=== PATIENT | female | born 1975 | race Caucasian/White ===

== ENCOUNTER 2016-07-28 10:39 | Observation (INO) | payer BC ==
[~2016-07-28] VITALS: Ht 157.5 cm; Wt 66.2 kg
[2016-07-28 10:42] VITALS: Ht 157.5 cm; Wt 66.2 kg
[2016-07-28] MEDS ORDERED: SOD CHLORIDE 0.9% 1,000 ML IV STA (10:49)
[2016-07-28] MEDS ORDERED: ONDANSETRON 4 MG INJ IV STA (10:49)
[2016-07-28] MEDS ORDERED: MECLIZINE 12.5 MG TAB PO ONE (11:00)
[2016-07-28 11:53] LABS: INR 0.95; PROTIME 12.7 Sec (12.2-14.2)
[2016-07-28 11:54] LABS: PARTIAL THROMBOPLASTIN TIME 26.9 Sec (25.0-35.0)
[2016-07-28 11:56] LABS: ALBUMIN 4.2 g/dl (3.3-4.9); CHLORIDE 102 mmol/L (97-110); POTASSIUM 3.7 mmol/L (3.5-5.1); SODIUM 138 mmol/L (135-144)
[2016-07-28 11:58] LABS: ANION GAP 17 (8-16); CARBON DIOXIDE 23 mmol/L (21-31)
[2016-07-28 11:59] LABS: ALANINE AMINOTRANSFERASE 28 IU/L (13-69); ALBUMIN/GLOBULIN RATIO 1.23; ALKALINE PHOSPHATASE 60 IU/L (42-121); ASPARTATE AMINO TRANSFERASE 20 IU/L (15-46); BLOOD UREA NITROGEN 14 mg/dl (7-20); CALCIUM 8.7 mg/dl (8.4-10.2); GLUCOSE 117 mg/dl (70-220); TOTAL PROTEIN 7.6 g/dl (6.1-8.1)
[2016-07-28 12:02] LABS: BASOPHILS % 0.1 % (0.0-2.0); CONDITION 1; EOSINOPHILS % 0.1 % (0.0-7.0); HEMOGLOBIN 12.7 g/dl (12.0-16.0); LH ANALYZER COMMENTS 1; LYMPHOCYTES # 0.5 10^3/ul (0.8-2.9); LYMPHOCYTES % 5.5 % (15.0-51.0); MEAN CORPUSCULAR HEMOGLOBIN 25.5 pg (29.0-33.0); MEAN CORPUSCULAR HGB CONC 33.4 g/dl (32.0-37.0); MEAN CORPUSCULAR VOLUME 76.3 fl (82.0-101.0); MEAN PLATELET VOLUME 9.8 fl (7.4-10.4); MONOCYTE # 0.2 10^3/ul (0.3-0.9); NEUTROPHIL # 8.8 10^3/ul (1.6-7.5); NEUTROPHILS % 92.3 % (39.0-77.0); PLATELET COUNT 190 10^3/UL (140-440); RED BLOOD COUNT 4.98 10^6/ul (4.20-5.40); UNCORRECTED WBC 9.5 10^3/ul (4.8-10.8); WHITE BLOOD COUNT 9.5 10^3/ul (4.8-10.8)
[2016-07-28 12:12] LABS: TROPONIN-I < 0.012 ng/ml (0.00-0.12)
[2016-07-28 12:22] VITALS: TEMP 98
[2016-07-28] MEDS ORDERED: DIAZEPAM 5 MG/ML SYG IV ONE (12:30)
--- NOTE | 2016-07-28 12:49 | ERD ---
ER Documentation Chief Complaint Date/Time DATE: 07/28/16 TIME: 12:45 Chief Complaint nausea, vomitting, dizziness HPI This is a 41-year-old female with no past medical history that presents to the emergency department complaining of a sudden onset of dizziness that occurred at 4 AM 6 hours prior to arrival. The patient indicates she awoke to let her dog out which she does on a regular basis around 4 AM. She is laid back down and she immediately felt as though the room was spinning around her. She has felt very nauseous and did have an episode of nonbloody nonbilious emesis. She states that the spinning sensation has persisted for the past 6 hours. The vertigo is improved when she lies supine with her eyes closed and worsen when she sits up with her eyes open. She denies any tinnitus or ear pain. She denies any recent remote head trauma. She denies a headache or changes in vision. She has had no recent weight loss and has no neck pain. ROS All systems reviewed and are negative except as per history of present illness. Medications Home Meds Active Scripts Ondansetron (Ondansetron Odt) 4 Mg Tab.rapdis, 4 MG PO Q6H Y for NAUSEA AND/OR VOMITING, #20 TAB Prov:BERTO REESE 07/28/16 Meclizine Hcl* (Meclizine Hcl*) 25 Mg Tablet, 25 MG PO TID, #20 TAB Prov:HUGHBERTO 07/28/16 Allergies Allergies: Coded Allergies: No Known Allergy (Unverified , 07/28/16) PMhx/Soc Medical and Surgical Hx: pt denies Medical Hx, pt denies Surgical Hx History of Surgery: No Anesthesia Reaction: No Hx Neurological Disorder: No Hx Respiratory Disorders: No Hx Cardiac Disorders: No Hx Psychiatric Problems: No Hx Miscellaneous Medical Probl: No Hx Alcohol Use: No Hx Substance Use: No Hx Tobacco Use: No Smoking Status: Never smoker Physical Exam Vitals Vital Signs Date Time Temp Pulse Resp B/P Pulse Ox O2 Delivery O2 Flow Rate FiO2 07/28/16 13:40 76 107/66 07/28/16 12:22 98.0 74 18 112/74 100 07/28/16 10:42 98.0 79 18 126/85 100 Physical Exam Constitutional:Well-developed. Well-nourished. HEENT:Normocephalic. Atraumatic.Pupils were equal round reactive to light. Moist mucous membranes.No tonsillar exudates. Funduscopy exam shows sharp optic disc bilaterally venous pulsations were present. Neck: No nuchal rigidity. No lymphadenopathy. No posterior cervical spine tenderness or step-offs. Respiratory: Not using accessory muscles of respiration.Lungs were clear to auscultation bilaterally. No rhonchi. No rales. No wheezing. Cardiovascular: Regular rate regular rhythm.No murmurs. No rubs were appreciated.S1, S2 normal. Distal pulses are palpable 2+ bilaterally. GI: Abdomen was soft. Nontender. Non Distended. No pulsatile abdominal masses or bruits. No rebound. No guarding. Bowel sounds were present and normal. Muscle skeletal: Full range of motion of both the upper and lower extremities bilaterally.Normal muscle tone.No assymetrical calf tenderness or swelling. Skin: No petechia, no purpura. No lesions on the palms or the soles of the feet. No maculopapular rash. NEURO: Patient was alert, awake, orientated x3.No facial droop. Gait observed and normal with no ataxia.Speech had regular rate and rhythm. No focal neurological deficits. Positive peripheral fatigable nystagmus. Result Diagram: 07/28/16 1116 07/28/16 1116 Results 24 hrs Laboratory Tests Test 07/28/16 11:16 Activated Partial Thromboplast Time 26.9Sec Alanine Aminotransferase (ALT/SGPT) 28IU/L Albumin 4.2g/dl Albumin/Globulin Ratio 1.23 Alkaline Phosphatase 60IU/L Anion Gap 17 Aspartate Amino Transf (AST/SGOT) 20IU/L Basophils # 0.010^3/ul Basophils % 0.1% Beta HCG, Quantitative < 2.4mIU/ml Blood Morphology Comment Blood Urea Nitrogen 14mg/dl Calcium Level 8.7mg/dl Carbon Dioxide Level 23mmol/L Chloride Level 102mmol/L Creatinine 0.40mg/dl Direct Bilirubin 0.00mg/dl Eosinophils # 0.010^3/ul Eosinophils % 0.1% Globulin 3.40g/dl Glucose Level 117mg/dl Hematocrit 38.0% Hemoglobin 12.7g/dl INR International Normalized Ratio 0.95 Indirect Bilirubin 0.0mg/dl Lymphocytes # 0.510^3/ul Lymphocytes % 5.5% Mean Corpuscular Hemoglobin 25.5pg Mean Corpuscular Hemoglobin Concent 33.4g/dl Mean Corpuscular Volume 76.3fl Mean Platelet Volume 9.8fl Monocytes # 0.210^3/ul Monocytes % 2.0% Neutrophils # 8.810^3/ul Neutrophils % 92.3% Nucleated Red Blood Cells # 0.010^3/ul Nucleated Red Blood Cells % 0.0/100WBC Platelet Count 37842^3/UL Potassium Level 3.7mmol/L Prothrombin Time 12.7Sec Prothrombin Time Ratio 1.0 Red Blood Count 4.9810^6/ul Red Cell Distribution Width 14.0% Sodium Level 138mmol/L Total Bilirubin 0.0mg/dl Total Protein 7.6g/dl Troponin I < 0.012ng/ml White Blood Count 9.510^3/ul Current Medications Medications (Trade) Dose Ordered Sig/Ilsa Route PRN Reason Start Time Stop Time Status Last Admin Dose Admin Sodium Chloride (NS) 1,000 ml @ 1,000 mls/hr Q1H STAT IV 07/28/16 10:49 07/28/16 11:48 DC 07/28/16 11:26 Ondansetron HCl (Zofran Inj) 4 mg ONCE STAT IV 07/28/16 10:49 07/28/16 10:50 DC 07/28/16 11:26 Meclizine HCl (Antivert) 25 mg ONCE ONCE PO 07/28/16 11:00 07/28/16 11:01 DC 07/28/16 11:27 Diazepam (Valium) 2 mg ONCE ONCE IV 07/28/16 12:30 07/28/16 12:31 DC 07/28/16 12:33 Ondansetron HCl (Zofran Inj) 4 mg BRIDGE ORDER PRN IV NAUSEA AND/OR VOMITING 07/28/16 14:30 07/29/16 14:29 Acetaminophen (Tylenol Tab) 650 mg ER BRIDGE PRN PO MILD PAIN/FEVER 07/28/16 14:30 07/29/16 14:29 Metoclopramide HCl (Reglan) 10 mg ONCE ONCE IV 07/28/16 14:30 07/28/16 14:31 DC Procedures/MDM This patient was seen and evaluated by myself. The patient presented to the emergency department complaining of dizziness. My differential diagnosis included but was not limited to hypovolemia, myocardial infarction, pulmonary embolism, hypoglycemia, hypoxia, anemia, vasovagal episode, hypothyroidism, anxiety, peripheral or central vertigo. The patient was placed on a bi technical lead, continuous pulse oximetry and IV access established by nursing staff. The patient received IV fluids Zofran and Antivert. She stated her vertiginous symptoms had improved but did not completely resolve. Therefore the patient received 2 mg of Valium intravenously. Observation Note: Time: 4 hours Family Hx: No Hypertension Evaluation: Multiple exams showed improving symptoms and no evidence of improvement. Therefore at this time I did feel the patient required a CT scan of her head. The patient did not feel comfortable being discharged home and will be admitted for observation due to intractable vertigo. CT scan of the head or and reviewed by myself showed no acute intracerebral hemorrhage mass-effect or midline shift Patient will be admitted in serious condition to the medical floor under the care of Dr. Caal. The patient is capitated [facility] with her IPA and therefore will be admitted under the care of Dr. Caal. Departure Diagnosis: Primary Impression: Peripheral vertigo Laterality: unspecified laterality Qualified Code: H81.399 - Peripheral vertigo, unspecified laterality Additional Impression: Intractable nausea and vomiting Condition: BERTO Malone Jul 28, 2016 12:49
[2016-07-28] MEDS ORDERED: ONDA4TAB14 PO (12:56)
[2016-07-28] MEDS ORDERED: MECL-77 PO (12:56)
[2016-07-28] MEDS ORDERED: ACETAMINOPHEN 325 MG TAB PO PRN ×2 (14:30→18:30)
[2016-07-28] MEDS ORDERED: ONDANSETRON 4 MG INJ IV PRN ×2 (14:30→16:00)
[2016-07-28] MEDS ORDERED: METOCLOPRAMIDE 10 MG INJ IV ONE (14:30)
--- NOTE | 2016-07-28 14:52 | RADRPT ---
PROCEDURE: CT brain without contrast CLINICAL INDICATION: Severe vertigo, syncope TECHNIQUE: CT of the brain without contrast was performed on a multidetector CT scanner, with multi planar reformats. One or more of the following dose reduction techniques were used: Automated expos ure control, adjustment in mA and / or kV according to patient size, use of iterative reconstructive technique. CTDIvol = 45 mGy; DLP = 630 mGy-cm. COMPARISON: None available FINDINGS: No acute intracranial hemorrhage is identified. No extra-axial fluid collection is seen. There is no mass effect. No midline shift is identified. There is a chronic left middle cerebral artery territory infarct in the left frontoparietal junction with slight ex vacuo dilation of the left lateral ventricle. Otherwise devries-white differentiation is preserved. Osseous structures are unremarkable. Mastoid air cells and imaged paranasal sinuses grossly clear. IMPRESSION: 1. No evidence of acute intracranial pathology. 2. 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 RPTAT: VV .Keron Chilel MD, MD Date Time Electronically viewed and signed by .Keron Chilel MD, MD on 07/28/2016 14:52 .O/
[2016-07-28 15:32] VITALS: BMI 26.7
[2016-07-28] MEDS ORDERED: MECLIZINE 25 MG TAB PO PRN (16:00)
[2016-07-28 16:13] VITALS: BP 121/58; PULSE 61; RESP 18
[2016-07-28] MEDS: ASPIRIN 325 MG TAB PO SCH (17:00)
[2016-07-28] MEDS: SOD CHLORIDE 0.9% 1,000 ML IV SCH (20:01)
[2016-07-28 20:41] VITALS: BP 118/59
--- NOTE | 2016-07-28 20:47 | HP ---
DATE OF ADMISSION: 07/28/2016 CHIEF COMPLAINT: Nausea, vomiting, and dizziness. HISTORY OF PRESENT ILLNESS: The patient is a 41-year-old female who denies any past medical history. The patient presented to the emergency room with sudden onset of dizziness that occurred at 4:00 a.m. and patient woke up to let her dog out which she usually does at 4:00 in the morning. The patient went back to bed and immediately felt as though the room was spinning around her. The patient felt very nauseous and had an episode of nonbloody, nonbilious emesis. During the examination, the patient stated that she continues to have vomiting and that she feels better after vomiting. She stated she has some mild headache. The patient denies fever, denies chills, denies dysuria, denies any chest pain, denies shortness of breath, denies bilateral leg swelling. The patient also stated that she is currently trying to get . The quantitative hCG was found less than 2.4 in the emergency room. The patient also underwent a CT scan of the brain which showed no evidence of acute intracranial pathology, chronic left middle cerebral artery territory infarct in the frontal parietal region. The patient stated that the vertigo is improved and she lies supine and closes her eyes; however, it gets worsened with sitting up and opening her eyes. The patient denies any recent trauma. Denies any tinnitus and ear pain, denies changes in vision. Denies any recent weight loss. The patient is admitted for further evaluation and management to medical/surgical floor. 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 FAMILY HISTORY: Noncontributory. SOCIAL HISTORY: The patient lives at home with her . The patient denies any tobacco use, denies any illicit drug use. The patient stated she drinks alcohol occasionally, small amount. ALLERGIES: NO KNOWN ALLERGIES. MEDICATIONS: The patient denies taking any medications. REVIEW OF SYSTEMS: A 12-point review of systems is negative unless what mentioned in the HPI. PHYSICAL EXAMINATION: GENERAL: Well-developed, well-nourished female, currently is awake, alert. VITAL SIGNS: Temperature is 98.6, pulse is 61, blood pressure is 121/58, respiratory rate 18, oxygen saturation 98% on room air. HEENT: Head is atraumatic, normocephalic. Pupils equal, round, reactive to light and accommodation. Oral mucosa is pink and moist. NECK: Supple, no cervical lymphadenopathy, no thyromegaly. CHEST: Lungs clear bilaterally. There is no rhonchi, wheezes, or rales noted. CARDIOVASCULAR: Normal S1, S2. No murmurs, gallops, clicks, rubs noted. ABDOMEN: Round, soft, nondistended, nontender. There is no guarding, no rebound tenderness. EXTREMITIES: There is no edema, clubbing, cyanosis. Pulses equal bilaterally 2 +. SKIN: There is no rash, petechiae noted. NEUROLOGIC: The patient is awake, alert and oriented x4. No focal deficits noted. Motor strength 5/5 in all extremities except right upper extremity. Weakness & atrophy of muscles right upper extremity. Cranial nerves II through XII are intact. ASSESSMENT AND PLAN: 1. Possible peripheral vertigo. Continue meclizine t.i.d. 2. Rule out acute coronary syndrome in patient with a history of chronic left middle cerebral artery territory infarct in frontoparietal region. We will obtain MRI of the brain. Will ask Dr. Max to see patient in neurology consultation. Continue Aspirin. 3. Intractable nausea and vomiting. Continue IV fluids. Continue Zofran p.r.n. for nausea, Tylenol p.r.n. for pain. Sequential compression devices for deep venous thrombosis prophylaxis. 4. 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 Further recommendations based on clinical course. Plan of care discussed with Dr. Caal. Dictated By: SAMEER LOZANO POCKET MARKER for KATLYN CAAL MD, SR/NTS Conf#: [id number] DID#: [id number] MTDD
[2016-07-28] MEDS ORDERED: LORAZEPAM 2 MG INJ IV ONE (22:15)
[2016-07-29 06:34] LABS: BASOPHILS % 0.3 % (0.0-2.0); EOSINOPHILS # 0.1 10^3/ul (0.0-0.5); HEMATOCRIT 34.6 % (37.0-47.0); HEMOGLOBIN 11.9 g/dl (12.0-16.0); LYMPHOCYTES # 1.7 10^3/ul (0.8-2.9); MEAN CORPUSCULAR HEMOGLOBIN 26.1 pg (29.0-33.0); MEAN CORPUSCULAR HGB CONC 34.4 g/dl (32.0-37.0); MEAN PLATELET VOLUME 9.9 fl (7.4-10.4); MONOCYTE # 0.4 10^3/ul (0.3-0.9); MONOCYTES % 6.6 % (0.0-11.0); NEUTROPHIL # 4.6 10^3/ul (1.6-7.5); NEUTROPHILS % 67.1 % (39.0-77.0); PLATELET COUNT 176 10^3/UL (140-440); RED BLOOD COUNT 4.55 10^6/ul (4.20-5.40); RED CELL DISTRIBUTION WIDTH 14.8 % (11.5-14.5); UNCORRECTED WBC 6.8 10^3/ul (4.8-10.8); WHITE BLOOD COUNT 6.8 10^3/ul (4.8-10.8)
[2016-07-29 06:39] LABS: CONDITION 1; LH ANALYZER COMMENTS 1
[2016-07-29 06:58] LABS: POTASSIUM 3.8 mmol/L (3.5-5.1)
[2016-07-29 07:00] LABS: CREATININE 0.54 mg/dl (0.44-1.00)
[2016-07-29 07:01] LABS: CALCIUM 8.2 mg/dl (8.4-10.2)
[2016-07-29 08:16] VITALS: BP 107/58; RESP 18
[2016-07-29] MEDS: ASPIRIN 325 MG TAB PO SCH (10:30)
[2016-07-29] MEDS: SOD CHLORIDE 0.9% 1,000 ML IV SCH (10:31)
--- NOTE | 2016-07-29 15:18 | CONS ---
Date/Time of Note Date/Time of Note DATE: 07/29/16 TIME: 15:05 Assessment/Plan Assessment/Plan Additional Assessment/Plan The patient is 41-year-old female with no past medical history, presented to the emergency room with sudden onset of dizziness that occurred at 4:00 a.m. and patient woke up to let her dog out which she usually does at 4:00 in the morning. The patient went back to bed and immediately felt as though the room was spinning around her. The patient felt very nauseous and had an episode of nonbloody, nonbilious emesis. During the examination, the patient stated that she continues to have vomiting and that she feels better after vomiting. She stated she has some mild headache. 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 Her symptoms has been improving but it gets worsened with movements. No history of weakness, numbness , speech or swallowing problem. MRI of brain could not be done due to claustrophobia. Examination is non focal except right lower arm and hand muscle loss which she has since childhood. 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 PLAN: 1 Open MRI of brain as outpatient 2 Continue Meclizine 12.5 mg po tid 3 Do not make sudden movements 4 DC planning Consultation Date/Type/Reason Admit Date/Time Jul 28, 2016 at 14:19 Date of Consultation: Jul 29, 2016 Reason for Consultation Dizziness Hx of Present Illness The patient is 41-year-old female with no past medical history, presented to the emergency room with sudden onset of dizziness that occurred at 4:00 a.m. and patient woke up to let her dog out which she usually does at 4:00 in the morning. The patient went back to bed and immediately felt as though the room was spinning around her. The patient felt very nauseous and had an episode of nonbloody, nonbilious emesis. During the examination, the patient stated that she continues to have vomiting and that she feels better after vomiting. She stated she has some mild headache. 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 Her symptoms has been improving but it gets worsened with movements. No history of weakness, numbness , speech or swallowing problem. MRI of brain could not be done due to claustrophobia. Constitutional: improved, no complaints Eyes: no complaints ENT: no complaints Respiratory: no complaints Cardiovascular: no complaints Gastrointestinal: no complaints Genitourinary: no complaints Musculoskeletal: no complaints Skin: no complaints Neurologic: no complaints Endocrine: no complaints Lymphatic: no complaints Psychological: nl mood/affect, no complaints Immunologic: no complaints Past Medical History Medical History: no pertinent history Past Surgical History Past Surgical Hx: no surgical history Family History Significant Family History: no pertinent family hx Social History Alcohol Use: none Smoking Status: Never smoker Drug Use: none Exam/Review of Systems Vital Signs Vitals Vital Signs Date Time Temp Pulse Resp B/P Pulse Ox O2 Delivery O2 Flow Rate FiO2 07/29/16 08:16 98.1 70 18 107/58 98 07/28/16 16:13 Room Air Intake and Output 07/28/16 07/28/16 07/29/16 15:00 23:00 07:00 Intake Total 400 ml 1249 ml Output Total 150 ml Balance 250 ml 1249 ml Exam Constitutional: alert, oriented, well developed Psych: nl mood/affect, no complaints Head: atraumatic, normocephalic Eyes: EOMI, nl conjunctiva, nl lids, nl sclera ENMT: mucosa pink and moist, nl external ears & nose, nl lips & teeth, nl nasal mucosa & septum Neck: non-tender, supple Respiratory: clear to auscultation, normal air movement Cardiovascular: nl pulses, regular rate and rhythm Gastrointestinal: nl liver, spleen, non-tender, soft Genitourinary - Female: nl adnexae, nl external genitalia Musculoskeletal: nl extremities to inspection, nl gait and stance Extremities: normal pulses Neurological: POLICEMAN II-XII intact, nl mental status, nl speech Skin: nl turgor, rash or lesions Lymph: nl lymph nodes Results Result Diagram: 07/29/16 0520 07/29/16 0520 Results 24 hrs Laboratory Tests Test 07/29/16 05:20 Anion Gap 13 Basophils # 0.0 Basophils % 0.3 Blood Morphology Comment Blood Urea Nitrogen 8 Calcium Level 8.2 L Carbon Dioxide Level 25 Chloride Level 109 Creatinine 0.54 Eosinophils # 0.1 Eosinophils % 1.0 Glucose Level 84 Hematocrit 34.6 L Hemoglobin 11.9 L Lymphocytes # 1.7 Lymphocytes % 25.0 Mean Corpuscular Hemoglobin 26.1 L Mean Corpuscular Hemoglobin Concent 34.4 Mean Corpuscular Volume 76.0 L Mean Platelet Volume 9.9 Monocytes # 0.4 Monocytes % 6.6 Neutrophils # 4.6 Neutrophils % 67.1 Nucleated Red Blood Cells # 0.0 Nucleated Red Blood Cells % 0.0 Platelet Count 176 Potassium Level 3.8 Red Blood Count 4.55 Red Cell Distribution Width 14.8 H Sodium Level 143 White Blood Count 6.8 # Medications Medications Current Medications Meclizine HCl (Antivert) 25 mg TID PRN PO NAUSEA; Start 07/28/16 at 16:00 Aspirin (Aspirin) 325 mg DAILY PO Last administered on 07/29/16 10:30; Admin Dose 325 MG; Start 07/28/16 at 16:00 Ondansetron HCl (Zofran Inj) 4 mg Q6H PRN IV NAUSEA AND/OR VOMITING Last administered on 07/28/16 21:21; Admin Dose 4 MG; Start 07/28/16 at 16:00 Acetaminophen 650 mg 650 mg Q6H PRN PO PAIN AND OR ELEVATED TEMP; Start at 18:30 Sodium Chloride (NS) 1,000 ml @ 70 mls/hr [id number] IV Last administered on 07/29 10:31; Admin Dose 70 MLS/HR; Start 07/28/16 at 18:30 Procedures Procedures 07/28/16 CT brain FINDINGS: No acute intracranial hemorrhage is identified. No extra-axial fluid collection is seen. There is no mass effect. No midline shift is identified. There is a chronic left middle cerebral artery territory infarct in the left frontoparietal junction with slight ex vacuo dilation of the left lateral ventricle. Otherwise devries-white differentiation is preserved. Osseous structures are unremarkable. Mastoid air cells and imaged paranasal sinuses grossly clear. IMPRESSION: 1. No evidence of acute intracranial pathology. 2. 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 RPTAT: VV .Keron Chilel MD, Date Time Electronically viewed and signed by .Keron Chilel MD, MD on 07/28/2016 14:52 BRANDI KEENAN MD Jul 29, 2016 15:16
--- NOTE | 2016-07-29 15:37 | PN ---
Date/Time of Note Date/Time of Note DATE: 07/29/16 TIME: 15:32 Assessment/Plan VTE Prophylaxis VTE Prophylaxis Intervention: SCD's Lines/Catheters IV Catheter Type (from Nrsg): Peripheral IV Assessment/Plan Assessment/Plan 1. Possible peripheral vertigo. Continue meclizine t.i.d. 2. Rule out acute coronary syndrome in patient with a history of chronic left middle cerebral artery territory infarct in frontoparietal region. We will obtain MRI of the brain. Will ask Dr. Max to see patient in neurology consultation. Continue Aspirin. 3. Intractable nausea and vomiting. Continue IV fluids. Continue Zofran p.r.n. for nausea, Tylenol p.r.n. for pain. Sequential compression devices for deep venous thrombosis prophylaxis. 4. 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 Further recommendations based on clinical course. Plan of care discussed with Dr. Caal. Exam/Review of Systems Vital Signs Vitals Vital Signs Date Time Temp Pulse Resp B/P Pulse Ox O2 Delivery O2 Flow Rate FiO2 07/29/16 08:16 98.1 70 18 107/58 98 07/28/16 16:13 Room Air Intake and Output 07/28/16 07/28/16 07/29/16 15:00 23:00 07:00 Intake Total 400 ml 1249 ml Output Total 150 ml Balance 250 ml 1249 ml Results Result Diagram: 07/29/16 0520 07/29/16 0520 Results 24 hrs Laboratory Tests Test 07/29/16 05:20 Anion Gap 13 Basophils # 0.0 Basophils % 0.3 Blood Morphology Comment Blood Urea Nitrogen 8 Calcium Level 8.2 L Carbon Dioxide Level 25 Chloride Level 109 Creatinine 0.54 Eosinophils # 0.1 Eosinophils % 1.0 Glucose Level 84 Hematocrit 34.6 L Hemoglobin 11.9 L Lymphocytes # 1.7 Lymphocytes % 25.0 Mean Corpuscular Hemoglobin 26.1 L Mean Corpuscular Hemoglobin Concent 34.4 Mean Corpuscular Volume 76.0 L Mean Platelet Volume 9.9 Monocytes # 0.4 Monocytes % 6.6 Neutrophils # 4.6 Neutrophils % 67.1 Nucleated Red Blood Cells # 0.0 Nucleated Red Blood Cells % 0.0 Platelet Count 176 Potassium Level 3.8 Red Blood Count 4.55 Red Cell Distribution Width 14.8 H Sodium Level 143 White Blood Count 6.8 # Medications Medications Current Medications Aspirin (Aspirin) 325 mg DAILY PO Last administered on 07/29/16 10:30; Admin Dose 325 MG; Start 07/28/16 at 16:00 Ondansetron HCl (Zofran Inj) 4 mg Q6H PRN IV NAUSEA AND/OR VOMITING Last administered on 07/28/16 21:21; Admin Dose 4 MG; Start 07/28/16 at 16:00 Acetaminophen 650 mg 650 mg Q6H PRN PO PAIN AND OR ELEVATED TEMP; Start at 18:30 Sodium Chloride (NS) 1,000 ml @ 70 mls/hr [id number] IV Last administered on 07/29 10:31; Admin Dose 70 MLS/HR; Start 07/28/16 at 18:30 Meclizine HCl (Antivert) 12.5 mg TID PO ; Start 07/29/16 at 21:00 ALVARADO GILMORE Jul 29, 2016 15:37
[2016-07-29 20:10] VITALS: BP 112/55; RESP 18
[2016-07-29] MEDS: MECLIZINE 12.5 MG TAB PO SCH (20:27)
[2016-07-30] MEDS: SOD CHLORIDE 0.9% 1,000 ML IV SCH ×2 (01:12→14:35)
[2016-07-30 06:32] LABS: POTASSIUM 3.8 mmol/L (3.5-5.1)
[2016-07-30 06:35] LABS: CALCIUM 8.4 mg/dl (8.4-10.2); CREATININE 0.5 mg/dl (0.44-1.00)
[2016-07-30 07:21] LABS: BASOPHILS % 0.6 % (0.0-2.0); EOSINOPHILS # 0.2 10^3/ul (0.0-0.5); EOSINOPHILS % 2.6 % (0.0-7.0); HEMATOCRIT 33.9 % (37.0-47.0); HEMOGLOBIN 11.6 g/dl (12.0-16.0); LYMPHOCYTES # 1.8 10^3/ul (0.8-2.9); LYMPHOCYTES % 29.7 % (15.0-51.0); MEAN CORPUSCULAR HEMOGLOBIN 25.9 pg (29.0-33.0); MEAN CORPUSCULAR HGB CONC 34.2 g/dl (32.0-37.0); MEAN CORPUSCULAR VOLUME 75.8 fl (82.0-101.0); MEAN PLATELET VOLUME 9.9 fl (7.4-10.4); MONOCYTE # 0.4 10^3/ul (0.3-0.9); MONOCYTES % 6.9 % (0.0-11.0); NEUTROPHIL # 3.7 10^3/ul (1.6-7.5); NEUTROPHILS % 60.2 % (39.0-77.0); PLATELET COUNT 164 10^3/UL (140-440); RED BLOOD COUNT 4.47 10^6/ul (4.20-5.40); RED CELL DISTRIBUTION WIDTH 14.4 % (11.5-14.5); UNCORRECTED WBC 6.2 10^3/ul (4.8-10.8); WHITE BLOOD COUNT 6.2 10^3/ul (4.8-10.8)
[2016-07-30 07:27] LABS: CONDITION 1; LH ANALYZER COMMENTS 1
[2016-07-30 07:49] VITALS: BP 114/60; RESP 16
[2016-07-30 07:50] VITALS: BP 143/66; RESP 16
[2016-07-30] MEDS: ASPIRIN 325 MG TAB PO SCH (08:39)
[2016-07-30] MEDS: MECLIZINE 12.5 MG TAB PO SCH ×2 (08:39→12:58)
--- NOTE | 2016-07-30 14:00 | RADRPT ---
Echocardiogram Report Patient Name: GRISEL WRIGHT Gender: Female Date: 1975 Study Date: 29-Jul-2016 New Car Inspector: Juan [facility] Location: [id number] Ref. Physician: KATLYN MAIN Quality: Adequate Procedures: Transthoracic echocardiogram with complete 2D, M-Mode, and doppler examination. Indications: R/O CVA, R/O CORONARY SYNDROMES. 2D/M Mode Doppler Measurement Value Normal Ranges Measurement Value Normal Ranges LVIDd 2D 4.1 3.5 - 5.6 cm AV Peak Sonu 1.2 m/sec LVIDs 2D 2.7 2.1 - 4.1 cm AV Peak PG 6.0 mmHg FS 2D 35.0 % LVOT Peak Sonu 0.8 m/sec LVPWd 2D 0.9 0.6 - 1.1 cm LVOT Peak PG 3.0 mmHg IVSd 2D 0.9 0.6 - 1.1 cm MV E Peak Sonu 0.9 m/sec IVS/LVPW 2D 1.0 MV A Peak Sonu 0.5 m/sec AoR Diam 2D 2.5 2.0 - 3.7 cm MV E/A 1.6 LA/Ao 2D 2 0 - 1 MV Decel Time 197 msec EDV 2D 68.4 cm3 MV E/A 1.6 ESV 2D 18.8 cm3 TR Peak Sonu 1.6 m/sec LA Dimen 2D 3.9 2.3 - 4.0 cm TR Peak PG 11.0 mmHg Findings Left Ventricle: Normal left ventricular systolic function. Normal left ventricular cavity size. Normal left ventricular wall thickness. Ejection fraction is visually estimated at 65 %. Right Ventricle: Normal right ventricular size. Normal right ventricular systolic function. Left Atrium: The left atrium is normal in size. Right Atrium: Prominent Eustachian valve (normal variant). Mitral Valve: Mitral valve leaflets appear mildly thickened. Aortic Valve: Trileaflet aortic valve. Trace aortic valve regurgitation. Tricuspid Valve: Normal appearance and function of the tricuspid valve with trace physiologic regurgitation. Pericardium: Normal pericardium with no significant pericardial effusion. Aorta: Normal aortic root. IVC: Dilated IVC with respiratory collapse consistent with elevated right atrial pressure. Conclusions 1.Normal left ventricular systolic function. Normal left ventricular cavity size. Normal left ventricular wall thickness. Ejection fraction is visually estimated at 65 %. 2.Normal appearance and function of the tricuspid valve with trace physiologic regurgitation. 3.Mitral valve leaflets appear mildly thickened. Electronically Signed By: David Rivera 30-Jul-2016 13:59:18 -0800 Patient Name: GRISEL WRIGHT Study Date: 29-Jul-[id number]
--- NOTE | 2016-07-30 14:08 | CONS ---
Date/Time of Note Date/Time of Note DATE: 07/30/16 TIME: 14:06 Assessment/Plan Assessment/Plan Chief Complaint/Hosp Course The patient is 41-year-old female with no past medical history, presented to the emergency room with sudden onset of dizziness that occurred at 4:00 a.m. and patient woke up to let her dog out which she usually does at 4:00 in the morning. The patient went back to bed and immediately felt as though the room was spinning around her. The patient felt very nauseous and had an episode of nonbloody, nonbilious emesis. During the examination, the patient stated that she continues to have vomiting and that she feels better after vomiting. She stated she has some mild headache. 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 Her symptoms has been improving but it gets worsened with movements. No history of weakness, numbness , speech or swallowing problem. MRI of brain could not be done due to claustrophobia. Problems: Additional Assessment/Plan The patient is 41-year-old female with no past medical history, presented to the emergency room with sudden onset of dizziness that occurred at 4:00 a.m. and patient woke up to let her dog out which she usually does at 4:00 in the morning. The patient went back to bed and immediately felt as though the room was spinning around her. The patient felt very nauseous and had an episode of nonbloody, nonbilious emesis. During the examination, the patient stated that she continues to have vomiting and that she feels better after vomiting. She stated she has some mild headache. 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 Her symptoms has been improving but it gets worsened with movements. No history of weakness, numbness , speech or swallowing problem. MRI of brain could not be done due to claustrophobia. Examination is non focal except right lower arm and hand muscle loss which she has since childhood. 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 Her symptoms has been improving. PLAN: 1 Open MRI of brain as outpatient 2 Continue Meclizine 12.5 mg po tid 3 Do not make sudden movements 4 OK to DC home and follow up as outpatient Consultation Date/Type/Reason Admit Date/Time Jul 28, 2016 at 14:19 Initial Consult Date 07/29/16 Reason for Consultation Dizziness 24 HR Interval Summary Free Text/Dictation Improved in symptoms of dizziness. MRI of brain could not be doen. Exam/Review of Systems Vital Signs Vitals Vital Signs Date Time Temp Pulse Resp B/P Pulse Ox O2 Delivery O2 Flow Rate FiO2 07/30/16 07:49 97.9 63 16 114/60 98 07/28/16 16:13 Room Air Intake and Output 07/29/16 07/29/16 07/30/16 15:00 23:00 07:00 Intake Total 411 ml 1310 ml 1450 ml Balance 411 ml 1310 ml 1450 ml Exam Constitutional: alert, oriented, well developed Psych: nl mood/affect, no complaints Head: atraumatic, normocephalic Eyes: EOMI, nl conjunctiva, nl lids, nl sclera ENMT: mucosa pink and moist, nl external ears & nose, nl lips & teeth, nl nasal mucosa & septum Neck: non-tender, supple Respiratory: clear to auscultation, normal air movement Cardiovascular: nl pulses, regular rate and rhythm Gastrointestinal: nl liver, spleen, non-tender, soft Musculoskeletal: nl gait and stance Extremities: normal pulses Neurological: [employer] II-XII intact, nl mental status, nl speech, nl strength Lymph: nl lymph nodes Results Result Diagram: 07/30/16 0530 07/30/16 0555 Results 24 hrs Laboratory Tests Test 07/30/16 05:30 07/30/16 05:55 Basophils # 0.0 Basophils % 0.6 Blood Morphology Comment Eosinophils # 0.2 Eosinophils % 2.6 Hematocrit 33.9 L Hemoglobin 11.6 L Lymphocytes # 1.8 Lymphocytes % 29.7 Mean Corpuscular Hemoglobin 25.9 L Mean Corpuscular Hemoglobin Concent 34.2 Mean Corpuscular Volume 75.8 L Mean Platelet Volume 9.9 Monocytes # 0.4 Monocytes % 6.9 Neutrophils # 3.7 Neutrophils % 60.2 Nucleated Red Blood Cells # 0.0 Nucleated Red Blood Cells % 0.0 Platelet Count 164 Red Blood Count 4.47 Red Cell Distribution Width 14.4 White Blood Count 6.2 Anion Gap 12 Blood Urea Nitrogen 7 Calcium Level 8.4 Carbon Dioxide Level 27 Chloride Level 105 Creatinine 0.50 Glucose Level 81 Potassium Level 3.8 Sodium Level 140 Medications Medications Current Medications Aspirin (Aspirin) 325 mg DAILY PO Last administered on 07/30/16 08:39; Admin Dose 325 MG; Start 07/28/16 at 16:00 Ondansetron HCl (Zofran Inj) 4 mg Q6H PRN IV NAUSEA AND/OR VOMITING Last administered on 07/28/16 21:21; Admin Dose 4 MG; Start 07/28/16 at 16:00 Acetaminophen 650 mg 650 mg Q6H PRN PO PAIN AND OR ELEVATED TEMP; Start at 18:30 Sodium Chloride (NS) 1,000 ml @ 70 mls/hr [id number] IV Last administered on 07/30 01:12; Admin Dose 70 MLS/HR; Start 07/28/16 at 18:30 Meclizine HCl (Antivert) 12.5 mg TID PO Last administered on 07/30/16 12:58; Admin Dose 12.5 MG; Start 07/29/16 at 21:00 BRANDI KEENAN MD Jul 30, 2016 14:08
[2016-07-30] MEDS ORDERED: MECL12.574 PO ×2 (16:24→16:28)
--- NOTE | 2016-07-30 19:16 | CONS ---
DATE OF ADMISSION: 07/28/2016 DATE OF CONSULTATION: 07/30/2016 REFERRING PHYSICIAN: Dr. Caal REASON FOR EVALUATION: Dizziness. HISTORY OF PRESENT ILLNESS: Ms. Gudino is a 41-year-old woman with history of dizziness in the past who comes to the hospital now for evaluation of dizziness. This was in the setting of nausea and vomiting. The patient had some EKG abnormalities and I have been asked to see the patient from a cardiac standpoint. The patient is in sinus rhythm. She has some nonspecific ST-T changes, borde rline low voltage. The patient does not exhibit any chest pain at this point. When she moves her h ead, she reproduces the symptoms. The most likely etiology of symptoms is labyrinthitis. I do not appreciate any cardiac cause of her symptoms. I think conservative therapy would be expected at thi s point. PAST MEDICAL HISTORY: History for prior infection, history of dizziness. ALLERGIES: NO KNOWN DRUG ALLERGIES. SOCIAL HISTORY: The patient does not smoke, does not drink, does not use any drugs. FAMILY HISTORY: Negative for sudden cardiac , premature coronary artery disease. CURRENT MEDICATIONS: Include: 1. Meclizine. 2. Aspirin. 3. Ondansetron. REVIEW OF SYSTEMS: CONSTITUTIONAL: No fevers, no chills. Dizziness as described. Recent upper respiratory infection fairly mild. HEENT: No changes in vision or hearing. CARDIAC: No chest pain. RESPIRATORY: No shortness of breath. GASTROINTESTINAL: No nausea, vomiting, diarrhea, constipation. GENITOURINARY: No dysuria, hematuria, ____. NEUROLOGIC: Dizziness. PSYCHIATRIC: No known history of psychiatric illness. PHYSICAL EXAMINATION: VITAL SIGNS: Temperature 97.9, heart rate 64, blood pressure 115/60. GENERAL: She is a well-nourished woman in no acute distress, alert and oriented x3, aware of her co ndition. HEAD: Normocephalic, atraumatic. Eyes anicteric. NECK: Supple. JVD 6 to 7 cm. There is no lymphadenopathy, no thyromegaly. HEART: Regular with soft holosystolic murmur at the apex. PMI is nondisplaced. There is no S3. LUNGS: Coarse at bases. ABDOMEN: Distended, bowel sounds are present. There is no hepatosplenomegaly. GENITOURINARY: Grossly intact. EXTREMITIES: Show no clubbing, cyanosis, or edema. LABORATORY DATA: White blood cell count 6.8, hemoglobin ____, platelets 164. INR is 1.0. Sodium 1 40, potassium 3.8, BUN 7, creatinine 0.7. ECG read by me shows some sinus rhythm with some nonspecific ST changes. ASSESSMENT AND PLAN: 1. Dizziness. I doubt cardiac dizziness at this point. Conservative therapy is expected. Follow up with a 2-D echo. Rule out myocardial infarction, patient did not rule in for ischemia. I doubt acute ischemic event. Conservative therapy is expected. Troponins are negative. 2. Possible history of anxiety. Will defer to primary team for evaluation. 3. Abnormal EKG, nonspecific ST-T changes noted. Continue to monitor clinically. 4. Dyslipidemia. Fasting lipids to follow. I would like to thank Dr. Caal for referring this patient for my evaluation. Dictated By: THIEN JOHNSTON MD ML/NTS Conf#: [id number] DID#: [id number] CC: KATLYN CAAL MD;*EndCC*
== END 2016-07-30 17:07 | disposition home or self-care (01) ==
LOC: E/R 10:39 → PP2 14:19
PROVIDERS: ADMIT Internal Medicine; ATTEND Internal Medicine
DX: R42 Dizziness and giddiness (principal); R94.39 Abnormal result of other cardiovascular function study; E78.5 Hyperlipidemia, unspecified
CPT/HCPCS: 36415; 70450; 80048; 80053; 84484; 84702; 85025; 85610; 85730; 93005; 93306; 96372; 96374; 96375; J2405; J3360; J7030; Z7500; Z7502; Z7610; G0378